=== PATIENT | male | born 1970 | race Caucasian/White ===

== ENCOUNTER 2017-11-05 14:39 | Emergency (ER) | payer SELFPAY ==
--- NOTE | 2017-11-05 14:54 | Emergency Department Record ---
History of Present Illness - General Chief Complaint: Cough Stated Complaint: COUGH, FEVER Time Seen by Provider: 11/05/17 14:50 Source: Patient Mode of Arrival: Ambulatory Limitations: No limitations - History of Present Illness Initial Comments: The patient is here due to a 1-2 day hx of cough, fever, congestion, body aches , and a mild BESS. He did not get a flu shot this year. MD Complaint: Cough, Fever, Nasal congestion, Rhinorrhea, Sore throat Onset/Timin -: Days(s) Consistency: Constant - Related Data Previous Rx's Medication Instructions Recorded Oseltamivir Phosphate [Tamiflu] 75 mg PO BID #10 capsule 11/05/17 Allergies Allergy/AdvReac Type Severity Reaction Status Date / Time No Known Drug Allergies Allergy Verified 11/05/17 14:44 Travel Screening - Travel/Exposure Within Last 30 Days Have you traveled within the last 30 days?: No Review of Systems Constitutional: Reports: Chills, Fever, Malaise Eyes: Denies: Eye discharge ENT: Reports: Congestion Respiratory: Reports: Cough. Denies: Dyspnea Past Medical History - SOCIAL HISTORY Smoking Status: Current every day smoker Alcohol Use: None Drug Use: None - RESPIRATORY Hx Respiratory Disorders: No - CARDIOVASCULAR Hx Cardio Disorders: No - NEURO Hx Neuro Disorders: No - GI Hx GI Disorders: No - Hx Genitourinary Disorders: No - ENDOCRINE Hx Endocrine Disorders: No - MUSCULOSKELETAL Hx Musculoskeletal Disorders: No - PSYCH Hx Psych Problems: No - HEMATOLOGY/ONCOLOGY Hx Hematology/Oncology Disorders: No Family Medical History Any Significant Family History?: No Physical Exam - General General Appearance: Alert, Oriented x3, Cooperative, No acute distress - Head Head exam: Atraumatic, Normocephalic, Normal inspection - Eye Eye exam: Normal appearance, PERRL - ENT Throat exam: Normal inspection. negative: Tonsillar erythema, Tonsillar exudate - Neck Neck exam: Normal inspection, Full ROM. negative: Tenderness - Respiratory Respiratory exam: Normal lung sounds bilaterally. negative: Respiratory distress - Cardiovascular Cardiovascular Exam: Regular rate, Normal rhythm, Normal heart sounds - GI/Abdominal GI/Abdominal exam: Soft, Normal bowel sounds. negative: Tenderness - Extremities Extremities exam: Normal inspection, Full ROM, Normal capillary refill. negative: Tenderness Course Vital Signs 11/05/17 14:45 Temperature 98.7 F Pulse Rate 105 H Respiratory 20 Rate Blood Pressure 137/91 Pulse Ox 96 - Reevaluation(s) Reevaluation #1: The patient is doing well. I explained the neg xray and the very high likely rooney he has Influenza. We will discharge him with Tamiflu and instruct him on the proper treatment at home. 11/05/17 15:29 Medical Decision Making - Data Complexity MDM Data: X-Ray Ordered and/or Reviewed - Radiology Data Radiology results: Report reviewed (CXR: Neg.) Disposition Disposition: Discharge Clinical Impression: Influenza Disposition: Home, Self-Care Condition: (2) Stable Instructions: Influenza (ED) Additional Instructions: Please drink plenty of fluids. Take Tylenol or Motrin for fever and body aches. Off work 2 days and take the Tamiflu. Please see your doctor if not better in 4 days. Return to the ER for any increased cough, temp > 103, vomiting, or trouble breathing. Prescriptions: Oseltamivir Phosphate [Tamiflu] 75 mg PO BID #10 capsule Forms: Patient Portal Access Time of Disposition: 15:26 Quality - Quality Measures Quality Measures: N/A - Blood Pressure Screening View Details: Yes Does Patient Have Any of the Following: No Blood Pressure Classification: Hypertensive Reading Systolic Measurement: 137 Diastolic Measurement: 91 Screening for High Blood Pressure: < Pre-Hypertensive BP, F/U Documented > [ G8950] Pre-Hypertensive Follow-up Interventions: Referral to alternative/primary care provider.
--- NOTE | 2017-11-06 10:50 | RADIOLOGY REPORT ---
EXAM: CHEST, TWO VIEWS HISTORY: COUGH AND CONGESTION WITH FEVER FOR ONE DAY. SINUS INFECTION FOR ONE WEEK. TECHNIQUE: Upright PA and lateral views of the chest were obtained. Comparison: None. FINDINGS: The heart is not enlarged and the pulmonary vasculature is nondilated. On the initial frontal view there is relative increased opacity in the hemithorax spaces likely due to motion artifact or mild atelectasis from low lung volumes. On the repeat image the lungs and pleural spaces are clear. There are degenerative changes scattered within the visualized spine. IMPRESSION: NO RADIOGRAPHIC EVIDENCE OF ACUTE CARDIOPULMONARY DISEASE. JOB NUMBER: [id number] [facility]
== END 2017-11-05 15:49 | disposition home or self-care (01) ==
LOC: ER 14:39
DX: J10.1 Influenza due to other identified influenza virus with other respiratory manifestations (principal); R05 Cough
CPT/HCPCS: 71046; 99283

== ENCOUNTER 2019-01-08 13:22 | Emergency (ER) | payer SELFPAY ==
[2019-01-08] MEDS ORDERED: ASPIRIN 81 MG CHEWABLE TABLET PO ONE (13:55)
[2019-01-08 14:07] LABS: BASO % 0.3 % (0-6); EOS % 1.6 % (0-6); GRAN % 58.1 % (47-80); HEMATOCRIT 47.1 % (42.0-52.0); HEMOGLOBIN 15.9 gm/dl (14.0-18.0); LYMPH % 31.3 % (16-45); MEAN CELL VOLUME 92.7 fl (81-97); MEAN CORPUSCULAR HEMOGLOBIN 31.3 pg (27-33); MEAN CORPUSCULAR HGB CONC 33.8 g/dl (32-36); MEAN PLATELET VOLUME 10.3 fl (7.4-10.4); MONO % 8.7 % (0-9); PLATELET COUNT 289 K/uL (130-400); RED BLOOD COUNT 5.08 M/uL (4.40-5.70); WHITE BLOOD COUNT W/O DIFF 7.4 K/uL (4.2-12.2)
[2019-01-08 14:14] LABS: BLOOD UREA NITROGEN 14 mg/dL (6-20); EST GLOMERULAR FILTRATION RATE > 60 mL/min
[2019-01-08 14:15] LABS: TOTAL PROTEIN 7.5 g/dL (6.6-8.7)
[2019-01-08 14:17] LABS: GLUCOSE,RANDOM 106 mg/dL (74-109)
[2019-01-08 14:19] LABS: ALT/SGPT 42 U/L (<41); AST/SGOT 22 U/L (10.0-50.0)
[2019-01-08 14:20] LABS: ALB/GLOB RATIO 1.8 (1.1-1.8); ALBUMIN 4.8 g/dL (4.0-5.0); ALKALINE PHOSPHATASE 91 U/L (40-129); CREATINE PHOSPHOKINASE 227 U/L (39-308)
[2019-01-08 14:23] LABS: CKMB 5.4 ng/mL (<6.73)
[2019-01-08 14:30] LABS: THYROID STIMULATING HORMONE 2.43 uIU/mL (0.270-4.20)
[2019-01-08] MEDS ORDERED: 0.9 % SODIUM CHLORIDE 1,000 ML BAG IV ONE (15:39)
--- NOTE | 2019-01-08 15:40 | Emergency Department Record ---
History of Present Illness - General Chief Complaint: Dizziness Stated Complaint: DIZZY/BESS/NUMBNESS/CHEST PAIN LAST NIGHT Time Seen by Provider: 01/08/19 13:42 Source: Patient Mode of Arrival: Wheelchair Limitations: No limitations - History of Present Illness Initial Comments: pt states he had cp all yesterday. it went away at night. then today he went to work and felt lightheaded and had numbness in both hands and feet. MD Complaint: Dizziness, Lightheadedness Onset/Timin -: Days(s) Timing: Sudden onset Description: Lightheadedness History of Same: No History of Trauma: No Severity: Mild Improves With: Nothing Worsens With: Nothing Associated Symptoms: Denies other symptoms - Nicolle Coma Scale Eye Response: (4) Open spontaneously Motor Response: (6) Obeys commands Verbal Response: (5) Oriented Nicolle Total: 15 - Symptoms of Stroke Symptoms of stroke: Numbness - Related Data Home Medications Medication Instructions Recorded Confirmed Last Taken No Home Med [NO HOME MEDS] 01/08/19 01/08/19 Unknown Allergies Allergy/AdvReac Type Severity Reaction Status Date / Time No Known Drug Allergies Allergy Verified 11/05/17 14:44 Travel Screening - Travel/Exposure Within Last 30 Days Have you traveled within the last 30 days?: No Review of Systems Reviewed: No additional complaints except as noted below Constitutional: Reports: As per HPI. Denies: Chills, Fever, Malaise, Night sweats, Weakness, Weight change Eyes: Reports: As per HPI. Denies: Eye discharge, Eye pain, Photophobia, Vision change ENT: Reports: As per HPI. Denies: Congestion, Dental pain, Ear pain, Epistaxis , Hearing loss, Throat pain Respiratory: Reports: As per HPI. Denies: Cough, Dyspnea, Hemoptysis, Stridor, Wheezes Cardiovascular: Reports: As per HPI. Denies: Arrhythmia, Chest pain, Dyspnea on exertion, Edema, Murmurs, Orthopnea, Palpitations, Paroxysmal nocturnal dyspnea, Rheumatic Fever, Syncope Endocrine: Reports: As per HPI. Denies: Fatigue, Heat or cold intolerance, Polydipsia, Polyuria Gastrointestinal: Reports: As per HPI. Denies: Abdominal pain, Constipation, Diarrhea, Hematemesis, Hematochezia, Melena, Nausea, Vomiting Genitourinary: Reports: As per HPI. Denies: Dysuria, Frequency, Hematuria, Incontinence, Retention, Testicular pain, Testicular mass, Urgency Musculoskeletal: Reports: As per HPI. Denies: Arthralgia, Back pain, Gout, Joint swelling, Myalgia, Neck pain Skin: Reports: As per HPI. Denies: Bruising, Change in color, Change in hair/ nails, Lesions, Pruritus, Rash Neurological: Reports: As per HPI. Denies: Abnormal gait, Confusion, Headache, Numbness, Paresthesias, Seizure, Tingling, Tremors, Vertigo, Weakness Psychiatric: Reports: As per HPI. Denies: Anxiety, Auditory hallucinations, Depression, Homicidal thoughts, Suicidal thoughts, Visual hallucinations Hematological/Lymphatic: Reports: As per HPI. Denies: Anemia, Blood Clots, Easy bleeding, Easy bruising, Swollen glands Past Medical History - SOCIAL HISTORY Smoking Status: Current every day smoker - RESPIRATORY Hx Respiratory Disorders: No - CARDIOVASCULAR Hx Cardio Disorders: Yes Hx Heart Attack: Yes - NEURO Hx Neuro Disorders: No - GI Hx GI Disorders: No - Hx Genitourinary Disorders: No - ENDOCRINE Hx Endocrine Disorders: No - MUSCULOSKELETAL Hx Musculoskeletal Disorders: No - PSYCH Hx Psych Problems: No - HEMATOLOGY/ONCOLOGY Hx Hematology/Oncology Disorders: No Family Medical History Any Significant Family History?: No Physical Exam - General General Appearance: Alert, Oriented x3, Cooperative, Mild distress - Head Head exam: Normal inspection - Eye Eye exam: Normal appearance, PERRL, EOMI Pupils: Normal accommodation - ENT ENT exam: Normal exam, Mucous membranes moist, Normal external ear exam, Normal orophraynx Ear exam: Normal external inspection. negative: External canal tenderness Nasal Exam: Normal inspection. negative: Discharge, Sinus tenderness Mouth exam: Normal external inspection, Tongue normal Teeth exam: Normal inspection. negative: Dental caries Throat exam: Normal inspection. negative: Tonsillar erythema, Tonsillar exudate - Neck Neck exam: Normal inspection, Full ROM. negative: Tenderness - Respiratory Respiratory exam: Normal lung sounds bilaterally. negative: Respiratory distress - Cardiovascular Cardiovascular Exam: Regular rate, Normal rhythm, Normal heart sounds - GI/Abdominal GI/Abdominal exam: Soft, Normal bowel sounds. negative: Tenderness - Rectal Rectal exam: Deferred - exam: Deferred - Extremities Extremities exam: Normal inspection, Full ROM, Normal capillary refill. negative: Tenderness - Back Back exam: Reports: Normal inspection, Full ROM. Denies: Muscle spasm, Rash noted, Tenderness - Neurological Neurological exam: Alert, CN II-XII intact, Normal gait, Oriented X3 - Psychiatric Psychiatric exam: Normal affect, Normal mood - Skin Skin exam: Dry, Intact, Normal color, Warm Course Vital Signs 01/08/19 13:26 Temperature 97.5 F L Pulse Rate 80 Respiratory 18 Rate Blood Pressure 157/95 Pulse Ox 99 - Reevaluation(s) Reevaluation #1: 01/08/19 17:10 pt has not had cp since yesterday . enzymes are neg. Medical Decision Making - Lab Data Result diagrams: 01/08/19 13:30 01/08/19 13:30 Lab Results 01/08/19 01/08/19 Range/Units 13:30 13:30 WBC 7.4 (4.2-12.2) K/uL RBC 5.08 (4.40-5.70) M/uL Hgb 15.9 (14.0-18.0) gm/dl Hct 47.1 (42.0-52.0) % MCV 92.7 (81-97) fl MCH 31.3 (27-33) pg MCHC 33.8 (32-36) g/dl RDW 13.0 (11.5-14.5) % Plt Count 289 (130-400) K/uL MPV 10.3 (7.4-10.4) fl Gran % 58.1 (47-80) % Lymphocytes % 31.3 (16-45) % Monocytes % 8.7 (0-9) % Eosinophils % 1.6 (0-6) % Basophils % 0.3 (0-6) % Sodium 139 (136-145) mmol/L Potassium 3.9 (3.4-4.5) mmol/L Chloride 100 (98-107) mmol/L Carbon Dioxide 27.0 (22-29) mmol/L Anion Gap 12.0 (7-16) BUN 14 (6-20) mg/dL Creatinine 1.0 (0.7-1.2) mg/dL Estimated GFR > 60 mL/min Random Glucose 106 (74-109) mg/dL Calcium 10.0 (8.6-10.0) mg/dL Total Bilirubin 0.60 (0.2-1.0) mg/dL AST 22 (10.0-50.0) U/L ALT 42 H (<41) U/L Alkaline Phosphatase 91 (40-129) U/L Creatine Kinase 227 (39-308) U/L CK-MB (CK-2) 5.4 (<6.73) ng/mL Troponin T < 0.010 (0-0.010) ng/mL Total Protein 7.5 (6.6-8.7) g/dL Albumin 4.8 (4.0-5.0) g/dL Globulin 2.7 (1.4-4.8) gm/dL Albumin/Globulin Ratio 1.8 (1.1-1.8) TSH 2.43 (0.270-4.20) uIU/mL Disposition Disposition: Discharge Clinical Impression: Dehydration Chest pain Qualifiers: Chest pain type: unspecified Qualified Code(s): R07.9 - Chest pain, unspecified Disposition: Home, Self-Care Condition: (1) Good Instructions: Chest Pain (ED), Dehydration (ED) Additional Instructions: follow up with dr llamas this week. return sooner if worse. take aspirin 81mg a day . Referrals: EFRA LLAMAS M.D. [MEDICAL DOCTOR] - [facility] [Provider Group] Forms: Patient Portal Access Quality - Quality Measures Quality Measures: N/A - Blood Pressure Screening Does Patient Have Any of the Following: No Blood Pressure Classification: Hypertensive Reading Systolic Measurement: 157 Diastolic Measurement: 95 Screening for High Blood Pressure: < First Hypertensive BP, F/U Documented > [ G8950] First Hypertensive Follow-up Interventions: Follow-up with rescreen GT 1 day and LT 4 weeks.
--- NOTE | 2019-01-11 08:12 | RADIOLOGY REPORT ---
EXAM: CHEST, TWO VIEWS HISTORY: DIZZINESS, NUMBNESS. TECHNIQUE: Two views of the chest were obtained. Comparison: Chest radiograph 11/05/17. FINDINGS: The cardiac silhouette is within normal size limits. No focal pulmonary consolidation. No pleural effusion or pneumothorax. IMPRESSION: NO ACUTE LUNG FINDINGS. JOB NUMBER: [id number] [facility]
== END 2019-01-08 17:24 | disposition home or self-care (01) ==
LOC: ER 13:22
DX: E87.0 Hyperosmolality and hypernatremia (principal); R07.9 Chest pain, unspecified; R20.0 Anesthesia of skin; R42 Dizziness and giddiness; I25.2 Old myocardial infarction; F17.210 Nicotine dependence, cigarettes, uncomplicated
CPT/HCPCS: 71046; 80053; 82550; 82553; 84443; 84484; 85025; 93005; 93010; 99284; J7030